=== PATIENT | female | born 1995 | race Asian ===

== ENCOUNTER 2018-08-11 23:14 | Emergency (ER) | payer OTHER ==
--- NOTE | 2018-08-11 23:33 | ED ---
Neurological HPI - HPI Summary HPI Summary: Pt is a 23 y/o female brought in by EMS who presents to the ED s/p seizure. She was drinking alcohol tonight and had a seizure with LOC. Pt states she only had one beer, and that she doesnt normally drink alcohol. She has epilepsy and states no one ever told me I cant drink alcohol. The last thing patient remembers is sitting on the stairs because she felt a seizure coming on. Seizure was witnessed by her friend, who states the episode lasted about 4 minutes and was tonic-clonic. Pt denies any urinary/bowel incontinence, tongue injuries, or shoulder/hip pain. She notes that lately she hasnt been sleeping enough. Pts last seizure was a few months ago. She takes two medications for her epilepsy but does not recall their names. Pt denies missing any doses recently. - History of Current Complaint Chief Complaint: EDSeizure Stated Complaint: "SEIZURE PER EMS" Time Seen by Provider: 08/11/18 23:28 Hx Obtained From: Patient, EMS Onset/Duration: Sudden Onset, Resolved Timing: Intermittent Episodes Lasting: Current Severity: None Number of Seizures: 1 Neurological Deficit Location: Generalized Pain Intensity: 0 Pain Scale Used: 0-10 Numeric Seizure Character: Total-Clonic Aggravating: Alcohol/Drug Ingestion - 1 beer, Sleep Deprivation Alleviating: Spontanious Resolution Associated Signs and Symptoms: Positive: Loss of Consciousness. Negative: Incontinent Bladder/Bowel Related Hx: Seizure - Allergy/Home Medications Allergies/Adverse Reactions: Allergies Allergy/AdvReac Type Severity Reaction Status Date / Time No Known Allergies Allergy Verified 08/11/18 23:47 PMH/Surg Hx/FS Hx/Imm Hx Endocrine/Hematology History: Denies: Hx Diabetes Neurological History: Reports: Hx Seizures - epilepsy Infectious Disease History: No Infectious Disease History: Denies: Traveled Outside the [place] in Last 30 Days - Family History Known Family History: Negative: Seizure Disorder - Social History Alcohol Use: Rare Hx Substance Use: No Substance Use Type: Reports: None Hx Tobacco Use: No Smoking Status (MU): Never Smoked Tobacco Review of Systems Positive: Other - lack of sleep Negative: Other - tongue injury Negative: Other - incontinence Negative: incontinence Negative: Arthralgia - shoulder hip Neurological: Other - seizure with LOC All Other Systems Reviewed And Are Negative: Yes Physical Exam - Summary Physical Exam Summary: Appearance: well appearing, no pain distress Skin: warm, dry, reflects adequate perfusion Head/face: normal Eyes: EOMI, NEO ENT: mucous membranes moist, no injury to the tongue Neck: supple, non-tender Respiratory: CTA, breath sounds present Cardiovascular: RRR, pulses symmetrical Abdomen: non-tender, soft, no incontinence Bowel Sounds: present Musculoskeletal: normal, strength/ROM intact Neuro: normal, sensory motor intact, A&Ox3 Triage Information Reviewed: Yes Vital Signs On Initial Exam: Initial Vitals Temp Pulse Resp BP Pulse Ox 97.8 F 72 16 112/66 99 08/11/18 23:25 08/11/18 23:25 08/11/18 23:25 08/11/18 23:25 08/11/18 23:25 Vital Signs Reviewed: Yes Diagnostics - Vital Signs Vital Signs Temp Pulse Resp BP Pulse Ox 08/11/18 23:25 97.8 F 72 16 112/66 99 - Laboratory Result Diagrams: 08/12/18 00:08 08/12/18 00:08 Lab Statement: Any lab studies that have been ordered have been reviewed, and results considered in the medical decision making process. Course/Dx - Course Course Of Treatment: Nurse's notes reviewed. Patient with known epilepsy on 2 medications that she cannot name that are from [place]. She has not been sleeping well and also drank alcohol today. She normally has a generalized seizure every couple of months. No prolonged postictal phase with this one and no injury to the tongue, joints and no incontinence. She was hydrated here. Her sodium was 129 and her WBC was low. She does not report any recent viral symptoms. She'll follow closely with [facility] for levels on her medication and for reevaluation. - Differential Dx Differential Diagnoses Neuro: Positive: Viral Syndrome, Other - Medication noncompliance, alcohol use, metabolic abnormality - Diagnoses Provider Diagnoses: Epileptic seizure, Hyponatremia Discharge - Sign-Out/Discharge Documenting (check all that apply): Patient Departure - Discharge Patient Received Moderate/Deep Sedation with Procedure: No - Discharge Plan Condition: Improved Disposition: HOME Patient Education Materials: Recurrent Seizures in Adults (ED) Referrals: [facility] [Provider Group] Additional Instructions: Go to [facility] on Tuesday and have them check levels on the medications that you take for seizures. Make sure that you sleep at least 8 hours per night. Alcohol may lower the seizure threshold, making seizures more likely. Not getting enough sleep may also make seizures more likely. Return if worse, recurring seizures, new symptoms or other concerns. - Billing Disposition and Condition Condition: IMPROVED Disposition: Home - Attestation Statements Document Initiated by Linnea: Yes Documenting Scribe: Awa Farmer Provider For Whom Arnaldoibe is Documenting (Include Credential): Oleg Kaye MD Scribe Attestation: IAwa, scribed for Oleg Kaye MD on 08/12/18 at 0142. Scribe Documentation Reviewed: Yes Provider Attestation: The documentation as recorded by the Awa blue accurately reflects the service I personally performed and the decisions made by me, Oleg Kaye MD Status of Scribe Document: Viewed
[2018-08-11] MEDS ORDERED: NS 0.9% 1000 ML** 1,000 ML IV ONE (23:37)
[2018-08-12 00:16] LABS: ABS Basophils 0 10^3/ul (0-0.2); ABS Eosinophils 0.1 10^3/ul (0-0.6); ABS Lymphocytes 1.2 10^3/ul (1.0-4.8); ABS Monocytes 0.2 10^3/ul (0-0.8); ABS Neutrophils 1.3 10^3/ul (1.5-7.7); ABS Nucleated RBC 0 10^3/ul; Eosinophil % 2.5 %; Hematocrit 36 % (33-41); Hemoglobin 12.4 g/dL (12.0-16.0); Lymphocyte % 42.4 %; Mean Corpuscular HGB Conc 34 g/dL (31-36); Mean Corpuscular Hemoglobin 33 pg (27-31); Mean Corpuscular Volume 96 fL (80-97); Mean Platelet Volume 6.7 fL (7.4-10.4); Nucleated Red Blood Cells % 0; Platelet Count 193 10^3/uL (150-450); Red Blood Count 3.79 10^6 /uL (3.70-4.87); Red Cell Distribution Width 13 % (10.5-15); White Blood Count 2.7 10^3/uL (3.5-10.8)
[2018-08-12 00:28] VITALS: BP 116/56
[2018-08-12 00:32] LABS: Anion Gap 6 mmol/L (2-11); BUN/Creatinine Ratio 12.7 (8-20); Blood Urea Nitrogen 8 mg/dL (6-24); CO2 Carbon Dioxide 26 mmol/L (22-32); Calcium 8.5 mg/dL (8.6-10.3); Chloride 97 mmol/L (101-111); EGFR African American 141.7 (>60); EGFR Non-African American 117.1 (>60); Glucose 95 mg/dL (70-100); Potassium 3.7 mmol/L (3.5-5.0); Sodium 129 mmol/L (135-145)
[2018-08-12 00:39] LABS: HCG Pregnancy < 0.60 mIU/mL
== END 2018-08-12 00:27 | disposition home or self-care (01) ==
LOC: ED 23:14
DX: G40.909 Epilepsy, unspecified, not intractable, without status epilepticus (principal); R55 Syncope and collapse; E87.1 Hypo-osmolality and hyponatremia
CPT/HCPCS: 36415; 80048; 84702; 85025; 96360; 99282